=== PATIENT | female | born 2000 | race Two or more races ===

== ENCOUNTER 2020-05-29 11:36 | Emergency (ER) | payer MEDICAID, OTHER ==
[~2020-05-29] VITALS: Ht 165.1 cm; Wt 72.6 kg
[2020-05-29 11:37] VITALS: BP 135/78
== END 2020-05-29 14:54 | disposition home or self-care (01) ==
LOC: ER 11:36
DX: N39.0 Urinary tract infection, site not specified (principal); N83.202 Unspecified ovarian cyst, left side
CPT/HCPCS: 74176; 76830; 76856